=== PATIENT | male | born 1995 ===

== ENCOUNTER → 2018-07-09 18:42 | Outpatient (REF) | payer OTHER, SELFPAY ==
[2018-07-09 19:02] LABS: Blood Urea Nitrogen 20 mg/dL (9-20); Calcium 10.1 mg/dL (8.4-10.2); Carbon Dioxide 30 mmol/L (22-32); Chloride 101 mmol/L (98-107); Estimated Glomerular Filt Rate > 60.0 mL/min (>60); Glucose 92 mg/dL (70-100); HEMOLYSIS < 15 (0-50); Potassium 3.8 mmol/L (3.4-5.1); Sodium 145 mmol/L (137-145)
[2018-07-14 21:12] LABS: 18 kD IgG Band Nonreactive; 23 kD IgG Band Nonreactive; 28 kD IgG Band Nonreactive; 30 kD IgG Band Nonreactive; 39 kD IgG Band Nonreactive; 41 kD IgG Bands Nonreactive; 45 kD IgG Band Nonreactive; 58 kD IgG Band Nonreactive; 66 kD IgG Band Reactive; 93 kD IgG Bands Nonreactive
== END ==
LOC: LAB 18:42
PROVIDERS: Visit Provider Family Medicine
DX: E29.1 Testicular hypofunction (principal); B34.9 Viral infection, unspecified; R53.83 Other fatigue
CPT/HCPCS: 36415; 80048; 84403; 86618